=== PATIENT | male | born 1960 | race Caucasian/White ===

== ENCOUNTER 2018-03-27 13:55 | Emergency (ER) | payer SELFPAY ==
[~2018-03-27] VITALS: Ht 177.8 cm; Wt 77.1 kg
[2018-03-27 13:55] VITALS: BP_SYST 130
[~2018-03-27 13:55] MED LIST: ASPI81TA2 PO; ATEN-166 PO; CARV6.2554 PO; LISI2.5T48 PO; SIMV20TA6 PO; SULF-113 PO; TRIA15CR3 TP
[2018-03-27] MEDS ORDERED: DIPHENHYDRAMINE INJ 50 MG/ML VIAL IM ONE (14:15)
[2018-03-27] MEDS ORDERED: PREDNISONE 5 MG TABLET PO ONE (14:15)
== END 2018-03-27 15:33 | disposition left against medical advice (07) ==
LOC: SED 13:55
DX: S50.361A Insect bite (nonvenomous) of right elbow, initial encounter (principal); I10 Essential (primary) hypertension; F17.200 Nicotine dependence, unspecified, uncomplicated; Z86.79 Personal history of other diseases of the circulatory system; Z79.82 Long term (current) use of aspirin; Z79.899 Other long term (current) drug therapy; Z53.20 Procedure and treatment not carried out because of patient's decision for unspecified reasons; W57.XXXA Bitten or stung by nonvenomous insect and other nonvenomous arthropods, initial encounter; Y93.01 Activity, walking, marching and hiking; Y92.89 Other specified places as the place of occurrence of the external cause; Y99.8 Other external cause status
CPT/HCPCS: 96372; 99283; J1200; J7512